=== PATIENT | female | born 1985 | race Caucasian/White ===

== ENCOUNTER 2016-10-15 13:28 | Emergency (ER) | payer OTHER ==
[~2016-10-15] VITALS: Ht 162.6 cm; Wt 107.9 kg
[2016-10-15] MEDS ORDERED: ZOFRAN ODT4 MG PO (17:49)
[2016-10-15 17:55] VITALS: BP 110/73
== END 2016-10-15 17:56 | disposition home or self-care (01) ==
LOC: EME 13:28
DX: G43.009 Migraine without aura, not intractable, without status migrainosus (principal)
CPT/HCPCS: 99281; 99283; J1885